=== PATIENT | female | born 1985 | race Caucasian/White ===

== ENCOUNTER 2024-05-13 08:56 | Outpatient (CLI) | payer OTHER, SELFPAY ==
--- NOTE | ~2024-05-13 | US_ITS ---
Abdominal Sonogram: Real-time sonographic imaging of the abdomen was performed. Clinical History: Abdominal pain Findings: The liver appears echogenic, with no evidence of mass lesion or bile duct dilatation. Main portal vein demonstrates normal direction of flow. The spleen is normal in size without evidence of focal lesion. The gallbladder is well distended, and appears normal with no evidence of gallstone or wall thickening. The common bile duct measures 4 mm. The visualized pancreas, aorta, and IVC are un remarkable. The right kidney measures 11.0 cm in length and the left kidney measures 11.4 cm. There is no hydronephrosis or renal calculus. Impression: Diffuse fatty infiltration of the liver. Reviewed, dictated and finalized at location . Impression: Diffuse fatty infiltration of the liver.
== END 2024-05-13 08:57 | disposition home or self-care (01) ==
LOC: MICIMG 08:57
PROVIDERS: PCP Internal Medicine; Visit Provider Internal Medicine
DX: R10.9 Unspecified abdominal pain (principal)
CPT/HCPCS: 76700

== ENCOUNTER 2025-02-08 08:29 | Outpatient (CLI) | payer OTHER, SELFPAY ==
[2025-02-08] MEDS: COSYNTROPIN 0.25 MG/ML VIAL IM (08:44)
[2025-02-08 10:56] LABS: Cortisol 60 Minute 23.10 ug/dL
== END 2025-02-08 08:30 | disposition home or self-care (01) ==
PROVIDERS: PCP Internal Medicine; Visit Provider Internal Medicine
DX: E03.9 Hypothyroidism, unspecified (principal); N93.9 Abnormal uterine and vaginal bleeding, unspecified; L68.0 Hirsutism
CPT/HCPCS: 36415; 82533; 96372; J0834